=== PATIENT | female | born 1970 | race Asian ===

== ENCOUNTER 2021-04-20 08:52 | Emergency (ER) | payer MEDICARE, OTHER ==
[~2021-04-20] VITALS: Ht 170.2 cm; Wt 63.5 kg
[2021-04-20 09:03] VITALS: BP_SYST 148
[2021-04-20] MEDS ORDERED: EPINEPHrine 1 MG/ML AMP IM ONE (09:15)
[2021-04-20] MEDS ORDERED: IBUPROFEN 800 MG TABLET PO ONE (09:45)
[2021-04-20] MEDS ORDERED: HYDROcodone/ACETAMIN 10-325 MG TAB PO ONE (09:45)
[2021-04-20] MEDS ORDERED: HYDR-3917 PO (10:41)
[2021-04-20] MEDS ORDERED: EPIN0.3P3 IM (10:41)
[2021-04-20 10:59] VITALS: BP_SYST 149
== END 2021-04-20 10:55 | disposition home or self-care (01) ==
LOC: SED 08:52
DX: T63.91XA Toxic effect of contact with unspecified venomous animal, accidental (unintentional), initial encounter (principal); R51.9 Headache, unspecified; X58.XXXA Exposure to other specified factors, initial encounter
CPT/HCPCS: 70450; 76376; 96372; 99284; J0171